=== PATIENT | female | born 1950 | race Caucasian/White ===

== ENCOUNTER 2019-10-19 04:06 | Emergency (ER) | payer MEDICARE, OTHER ==
--- NOTE | 2019-10-19 04:30 | ED Physician Documentation ---
PD HPI ABD PAIN - Stated complaint Stated Complaint: ABD PX/FEVER - Chief complaint Chief Complaint: Abd Pain - History obtained from History obtained from: Patient - History of Present Illness Timing - onset: How many days ago (1-2) Timing - duration: Days Timing - details: Gradual onset, Waxing and waning Pain level now: 8 Quality: Cramping, Pain Location: All over / everywhere Radiation: Other (does not radiate) Improved by: Other (no ameliorating factors) Worsened by: Other (no exacerbating factors) Associated symptoms: Nausea, Constipation. No: Fever, Vomiting, Diarrhea Similar symptoms before: Has not had sx before Recently seen: Not recently seen - Additional information Additional information: c/o 1-2 days of abdominal cramping and bloating/distention. has felt urge to defecate all day but unable to have BM. Review of Systems Constitutional: denies: Fever, Chills, Sweats Cardiac: reports: Reviewed and negative Respiratory: reports: Reviewed and negative GI: reports: Abdominal Pain, Abdominal Swelling, Nausea, Constipation. denies: Vomiting : denies: Dysuria, Frequency Skin: denies: Rash PD PAST MEDICAL HISTORY - Past Medical History Past Medical History: Yes - Past Surgical History Past Surgical History: Yes General: Gastric surgery (Jatinder fundoplication), Other (right inguinal hernia repair) /[employer]: Hysterectomy - Present Medications Home Medications: Ambulatory Orders Medication Instructions Recorded Confirmed Citalopram [CeleXA] 20 mg PO DAILY 11/22/13 11/22/13 L. Rhamnosus GG/Inulin [Culturelle 1 each PO DAILY #14 cap.sprink 11/22/13 Capsule] Phenazopyridine HCl [Azo] 95 mg PO DAILY 11/22/13 11/22/13 Sulfamethoxazole/Trimethoprim 1 each PO BID #14 tablet 11/22/13 [Bactrim Ds Tablet] - Allergies Allergies/Adverse Reactions: Allergies Allergy/AdvReac Type Severity Reaction Status Date / Time gluten Allergy Cramps Verified 10/19/19 04:32 - Living Situation Living Arrangement: reports: At home - Social History Does the pt smoke?: No Smoking Status: Never smoker Does the pt drink ETOH?: No Does the pt have substance abuse?: No - Immunizations Immunizations are current?: No Immunizations: No immun - POLST Patient has POLST: No PD ED PE NORMAL - Vitals Vital signs reviewed: Yes - General General: Alert and oriented X 3, No acute distress, Well developed/nourished - HEENT HEENT: Moist mucous membranes - Neck Neck: Supple, no meningeal sign - Cardiac Cardiac: RRR, No murmur - Respiratory Respiratory: No respiratory distress, Clear bilaterally - Abdomen Abdomen: Soft - Derm Derm: Normal color, Warm and dry, No rash - Extremities Extremities: No edema PD ED PE EXPANDED - Abdomen Abdomen: Decreased BS, Distended (mild), Tender to palpation (periumbilical, RUQ and epigastrium). No: Rebound Results - Vitals Vitals: Vital Signs - 24 hr 10/19/19 10/19/19 10/19/19 04:18 06:30 06:48 Temperature 37.0 C 37.8 C H Heart Rate 96 90 Respiratory 16 17 17 Rate Blood Pressure 152/106 H 143/81 H O2 Saturation 99 97 100 10/19/19 10/19/19 07:39 08:30 Temperature Heart Rate 80 80 Respiratory 16 14 Rate Blood Pressure 133/71 H 111/67 O2 Saturation 97 98 Oxygen O2 Source Room air - Labs Labs: Laboratory Tests 10/19/19 10/19/19 10/19/19 04:25 04:25 04:25 WBC 14.5 H RBC 4.29 Hgb 12.1 Hct 36.4 L MCV 84.8 MCH 28.2 MCHC 33.2 RDW 14.6 Plt Count 407 MPV 8.9 Neut # (Auto) 11.6 H Lymph # (Auto) 1.8 [place] # (Auto) 0.9 Eos # (Auto) 0.1 Baso # (Auto) 0.1 Absolute Nucleated RBC 0.00 Nucleated RBC % 0.0 Sodium 133 L Potassium 3.5 Chloride 97 L Carbon Dioxide 26 Anion Gap 10.0 BUN 17 Creatinine 0.8 Estimated GFR (MDRD) 71 L Glucose 117 H Calcium 9.1 Total Bilirubin 0.4 AST 22 ALT 19 Alkaline Phosphatase 36 L Total Protein 7.8 Albumin 4.5 Globulin 3.3 Albumin/Globulin Ratio 1.4 Lipase 35 Urine Color YELLOW Urine Clarity CLEAR Urine pH 6.0 Ur Specific [place] 1.025 Urine Protein NEGATIVE Urine Glucose (UA) NEGATIVE Urine Ketones NEGATIVE Urine Occult Blood TRACE-INTA Urine Nitrite NEGATIVE Urine Bilirubin NEGATIVE Urine Urobilinogen 0.2 (NORMAL) Ur Leukocyte Esterase NEGATIVE Ur Microscopic Review NOT INDICATED Urine Culture Comments NOT INDICATED - Rads (name of study) CT A/P Radiology: Prelim report reviewed, See rad report PD MEDICAL DECISION MAKING - ED course Complexity details: reviewed results, re-evaluated patient, considered differential, d/w patient Departure - Departure Disposition: 01 Home, Self Care Clinical Impression: Obstipation Condition: Good Instructions: ED Constipation
[2019-10-19 04:36] LABS: BASOPHILS # (AUTO) 0.1 10^3/uL (0.0-0.1); BASOPHILS % (AUTO) 0.5 %; EOSINOPHILS # (AUTO) 0.1 10^3/uL (0.0-0.7); EOSINOPHILS % (AUTO) 0.6 %; HGB - HEMOGLOBIN 12.1 g/dL (12.0-16.0); LYMPHOCYTES # (AUTO) 1.8 10^3/uL (1.5-3.5); LYMPHOCYTES % (AUTO) 12.2 %; MEAN CORPUSCULAR HEMOGLOBIN 28.2 pg (27.0-31.0); MEAN CORPUSCULAR HGB CONC 33.2 g/dL (32.0-36.0); MEAN CORPUSCULAR VOLUME 84.8 fL (81.0-99.0); MEAN PLATELET VOLUME 8.9 fL (7.9-10.8); MONOCYTES # (AUTO) 0.9 10^3/uL (0.0-1.0); MONOCYTES % (AUTO) 6.5 %; NEUTROPHILS # (AUTO) 11.6 10^3/uL (1.5-6.6); NEUTROPHILS % (AUTO) 79.6 %; PLT - PLATELET COUNT 407 10^3/uL (130-450); RED BLOOD COUNT 4.29 10^6/uL (4.20-5.40); RED CELL DISTRIBUTION WIDTH 14.6 % (12.0-15.0); WHITE BLOOD COUNT 14.5 x10^3/uL (4.8-10.8)
[2019-10-19 04:42] LABS: BILIRUBIN,URINE NEGATIVE (NEGATIVE); GLUCOSE, URINE (UA) NEGATIVE (NEGATIVE); KETONES,URINE (UA) NEGATIVE (NEGATIVE); LEUKOCYTE ESTERASE, URINE NEGATIVE (NEGATIVE); NITRITE,URINE NEGATIVE (NEGATIVE); OCCULT BLOOD,URINE TRACE-INTA (NEGATIVE); PROTEIN,URINE NEGATIVE (NEGATIVE); UROBILINOGEN,URINE 0.2 (NORMAL) E.U./dL (NORMAL)
[2019-10-19 04:44] LABS: CLARITY,URINE CLEAR (CLEAR)
[2019-10-19 04:52] LABS: ALBUMIN 4.5 g/dL (3.2-5.5); ALBUMIN/GLOBULIN RATIO 1.4 (1.0-2.2); BILIRUBIN,TOTAL 0.4 mg/dL (0.2-1.0); CALCIUM 9.1 mg/dL (8.5-10.3); CREATININE 0.8 mg/dL (0.4-1.0); TOTAL PROTEIN 7.8 g/dL (6.7-8.2)
[2019-10-19] MEDS ORDERED: HYDROmorphone 1 MG/ML CARPUJECT IVP STA ×2 (05:15→07:14)
[2019-10-19] MEDS ORDERED: ONDANSETRON 4 MG/2 ML VIAL IVP STA (05:15)
[2019-10-19] MEDS ORDERED: SODIUM CHLORIDE 0.9% 1,000 ML IV STA (05:18)
[2019-10-19] MEDS ORDERED: IOVERSOL 320 100 ML VIAL IVP ONE ×2 (05:27→07:40)
[2019-10-19] MEDS ORDERED: IOVERSOL 320 50 ML VIAL ONE (05:27)
[2019-10-19] MEDS ORDERED: IOVERSOL 320 50 ML VIAL PO ONE (07:40)
--- NOTE | 2019-10-19 08:14 | CT Report ---
PROCEDURE: Abdomen/Pelvis W INDICATIONS: abd. pain, distention, vomiting CONTRAST: IV CONTRAST: Optiray 320 ml: 100 PO CONTRAST: Optiray 320 ml50 TECHNIQUE: After the administration of contrast, 5 mm thick sections acquired from the diaphragms to the sym physis. 5 mm thick coronal and sagittal reformats were acquired. For radiation dose reduction, the following was used: automated exposure control, adjustment of mA and/or kV according to patient size . COMPARISON: None. FINDINGS: Image quality: Excellent. ABDOMEN: Lung bases: Lung bases are clear. Heart size is normal. A small amount of oral contrast is remaini ng within the distal esophagus in this patient with surgical changes at the esophagogastric junction Solid organs: Liver and spleen are normal in size and enhancement. Gallbladder appears normal Bili surinder system is non dilated. Pancreas enhances normally. No adrenal nodules. Kidneys demonstrate nor mal size and enhancement, without hydronephrosis. Peritoneum and bowel: Bowel loops demonstrate normal wall thickness and caliber. No free fluid or a ir. There is prominent colonic obstipation, greater on the right than the left. Gas prominence withi n colon loops is noted, but a site of mechanical obstruction is not present. Nodes and vessels: No retroperitoneal or mesenteric adenopathy by size criteria. Aorta and inferior vena cava are normal in size. Miscellaneous: No ventral hernias. PELVIS: Genitourinary: Bladder wall thickness is normal. Miscellaneous: No inguinal hernias or adenopathy. Bones: No suspicious bony lesions. No vertebral body compression fractures. IMPRESSION: Prominent colonic obstipation, right greater than left, gas prominence within colon loop s but no mechanical or mass-like etiology is present in the degree of distention does not indicate de finite obstruction. No free air seen, no bowel wall pneumatosis. No inflammatory free fluid within th e peritoneal space. Reviewed by: Micah Neely MD on 10/19/2019 8:12 AM PDT Approved by: Micah Neely MD on 10/19/2019 8:12 AM PDT Station ID: [id number]
[2019-10-19 08:33] VITALS: BP 111/67
[2019-10-19] MEDS ORDERED: MAGNESIUM CITRATE 296 ML BOTTLE PO STA (08:42)
[2019-10-19] MEDS ORDERED: MINERAL OIL ENEMA 133 ML BOTTLE RC STA (08:42)
== END 2019-10-19 08:57 | disposition home or self-care (01) ==
LOC: ED 04:06
DX: K59.00 Constipation, unspecified (principal)
CPT/HCPCS: 36415; 74177; 80053; 81003; 83690; 85025; 96361; 96374; 96375; 96376; 99284; A9270; J1170; Q9967; 81001; 87086

== ENCOUNTER 2019-10-20 10:32 | Emergency (ER) | payer MEDICARE, OTHER ==
[2019-10-20 11:06] VITALS: BP 132/66
== END 2019-10-20 12:04 | disposition left against medical advice (07) ==
LOC: ED 10:32
DX: Z53.21 Procedure and treatment not carried out due to patient leaving prior to being seen by health care provider (principal)